=== PATIENT | male | born 1955 | race Caucasian/White ===

== ENCOUNTER 2025-06-03 12:33 | Emergency (ER) | payer MEDICARE, BC ==
[~2025-06-03] VITALS: Ht 188 cm; Wt 74.9 kg
[2025-06-03] MEDS ORDERED: REXU1TAB4 (12:52)
[2025-06-03 16:09] VITALS: BP 177/99; TEMP 96.7; O2SAT 99
[2025-06-03 16:29] LABS: KETONE, URINE AUTO RFX NEGATIVE (NEGATIVE); LEUKOCYTE ESTERASE UR AUTO RFX NEGATIVE (NEGATIVE); NITRITE, URINE AUTO RFX NEGATIVE (NEGATIVE); RBC, URINE AUTO RFX 2 /HPF (0-3); SQUAM EPITHELIAL CELL UR AURFX 0 /HPF (0-6); WBC, URINE AUTO RFX 0 /HPF (0-3)
== END 2025-06-03 16:23 | disposition home or self-care (01) ==
LOC: M ED 12:33
DX: S93.601A Unspecified sprain of right foot, initial encounter (principal); Y92.9 Unspecified place or not applicable; Y93.01 Activity, walking, marching and hiking; Y99.9 Unspecified external cause status; W19.XXXA Unspecified fall, initial encounter; F03.90 Unspecified dementia, unspecified severity, without behavioral disturbance, psychotic disturbance, mood disturbance, and anxiety; Z79.899 Other long term (current) drug therapy